=== PATIENT | female | born 1945 | race African-American/Black ===

== ENCOUNTER → 2019-03-15 | Outpatient (CLI) | payer OTHER ==
--- NOTE | 2019-03-15 15:50 | Diagnostic Imaging Report ---
Indication: Headache Technique: Contiguous 5 mm thick transaxial imaging of the head obtained in a Siem[employer] Sensation [address] scanner. Soft tissue and bone windows generated. Automatic Exposure Control was utilized. Total Dose length Product (DLP): 1418.[address] Dose Index Volume (CTDIvol): 70.38 mGy Comparison: 05/27/2008 Findings: There is mild prominence of the ventricles, basal cisterns, and cerebral sulci consistent with atrophy. Mild, nonspecific, white matter hypoattenuation is noted throughout the brain consistent with chronic small vessel disease. There is no midline shift, edema, acute hemorrhage, mass effect, or abnormal extra-axial fluid collections. Bones are unremarkable. There is opacification of the paranasal sinuses as visualized. Impression: No acute intracranial bleed, mass effect or edema. Mild atrophy of the brain. Nonspecific white matter hypoattenuation probably due to chronic small vessel disease. Sinusitis The CT scanner at [facility] is accredited by the [employer] and the scans are performed using dose optimization techniques as appropriate to a performed exam including Automatic Exposure control.
--- NOTE | 2019-03-15 16:20 | Diagnostic Imaging Report ---
Indication: Abdominal pain Technique: Continuous helical transaxial imaging of the abdomen and pelvis was obtained from the lung bases to the pubic symphysis. No intravenous contrast was administered. Coronal 2-D reformats were also obtained. Automatic Exposure Control was utilized. Total Dose length Product (DLP): 978.[address] Dose Index Volume (CTDIvol): 17.25 mGy Comparison: none Findings: There is mild basilar atelectasis. Cholecystectomy noted. Tiny calcific focus noted in the medial part of the left kidney. This could be vascular or might be a nonobstructive stone. There is no hydronephrosis. There is no adrenal mass or ascites. Bowel gas pattern appears nonobstructive. There is a small umbilical hernia containing fat. Diverticula fairly extensive noted within the sigmoid colon. Appendix is partially seen and unremarkable as such. There is narrowing of intervertebral discs and accompanying endplate osteophyte formation. Hypertrophied facet joints also demonstrated.. There is anterolisthesis at L4-5. IMPRESSION: No acute findings. Diverticulosis of the colon without definite diverticulitis. Umbilical hernia containing fat Apparent hysterectomy Status post cholecystectomy Tiny nonobstructive stone versus vascular calcium in the left renal hilum. Atherosclerotic vascular disease. Hiatal hernia Spondylosis The CT scanner at [facility] is accredited by the [employer] and the scans are performed using dose optimization techniques as appropriate to a performed exam including Automatic Exposure control.
== END | disposition home or self-care (01) ==
LOC: CAT 14:58
DX: R10.9 Unspecified abdominal pain (principal); K57.90 Diverticulosis of intestine, part unspecified, without perforation or abscess without bleeding; K42.9 Umbilical hernia without obstruction or gangrene; Z90.710 Acquired absence of both cervix and uterus; Z90.49 Acquired absence of other specified parts of digestive tract; I70.90 Unspecified atherosclerosis; K44.9 Diaphragmatic hernia without obstruction or gangrene; M47.9 Spondylosis, unspecified; R51 Headache; G31.9 Degenerative disease of nervous system, unspecified; J32.9 Chronic sinusitis, unspecified
CPT/HCPCS: 70450; 74176